=== PATIENT | female | born 1990 | race African-American/Black ===

== ENCOUNTER 2018-05-30 18:48 | Emergency (ER) | payer SELFPAY, OTHER ==
[2018-05-30] MEDS: ONDANSETRON 4MG/2ML VIAL (J2405) IV (20:15)
[2018-05-30] MEDS: KETOROLAC 30 MG/ML VIAL (J1885) IV (20:18)
[2018-05-30 20:26] LABS: BASO % 0.5 % (0.0-1.0); EOS # 0.1 10^3/uL (0.0-0.50); EOS % 1.8 % (0.0-3.0); HEMATOCRIT 38.1 % (36.0-47.0); HEMOGLOBIN 12.4 g/dl (12.0-15.5); IMMATURE GRANULOCYTE % 0.2 % (0-3.0); LYMPH # 3.7 10^3/uL (1.5-6.5); LYMPH % 56.8 % (24.0-44.0); MEAN CORPUSCULAR HEMOGLOBIN 28.6 pg (27.0-33.0); MEAN CORPUSCULAR HGB CONC 32.5 g/dl (32.0-36.5); MEAN CORPUSCULAR VOLUME 87.8 fl (80.0-96.0); MONO # 0.3 10^3/uL (0.0-0.8); MONO % 5.2 % (0.0-5.0); NEUTROPHILS # 2.4 10^3/uL (1.8-7.7); NEUTROPHILS % 35.5 % (36.0-66.0); PLATELET COUNT, AUTOMATED 255 10^3/uL (150-450); RED BLOOD COUNT 4.34 10^6/uL (4.00-5.40); RED CELL DISTRIBUTION WIDTH 14.4 % (11.5-14.5); WHITE BLOOD COUNT 6.6 10^3/uL (4.0-10.0)
[2018-05-30 20:28] LABS: KETONE, URINE AUTO RFX NEGATIVE (NEGATIVE); LEUKOCYTE ESTERASE UR AUTO RFX NEGATIVE (NEGATIVE); NITRITE, URINE AUTO RFX NEGATIVE (NEGATIVE); RBC, URINE AUTO RFX 1 /HPF (0-3); SPECIFIC GRAVITY UR AUTO RFX 1.005 (1.002-1.035); SQUAM EPITHELIAL CELL UR AURFX 2 /HPF (0-6); WBC, URINE AUTO RFX 0 /HPF (0-3)
[2018-05-30 20:55] LABS: ALBUMIN 3.8 GM/DL (3.2-5.2); ALBUMIN/GLOBULIN RATIO 0.76 (1.00-1.93); ALKALINE PHOSPHATASE 59 U/L (45-117); ALT/SGPT 21 U/L (12-78); ANION GAP 6 MEQ/L (8-16); AST/SGOT 21 U/L (7-37); BILIRUBIN,DIRECT < 0.1 MG/DL (0.0-0.2); BILIRUBIN,TOTAL 0.3 MG/DL (0.2-1.0); BLOOD UREA NITROGEN 5 MG/DL (7-18); C REACTIVE PROTEIN QUANTITATIV 0.81 MG/DL (0.00-0.30); CALCIUM LEVEL 9.4 MG/DL (8.5-10.1); CARBON DIOXIDE LEVEL 28 MEQ/L (21-32); CHLORIDE LEVEL 105 MEQ/L (98-107); CREATININE FOR GFR 0.68 MG/DL (0.55-1.30); GLOMERULAR FILTRATION RATE > 60.0 (>60); GLUCOSE, FASTING 84 MG/DL (70-100); POTASSIUM SERUM 4.6 MEQ/L (3.5-5.1); SODIUM LEVEL 139 MEQ/L (136-145); TOTAL PROTEIN 8.8 GM/DL (6.4-8.2)
== END 2018-05-30 21:36 | disposition home or self-care (01) ==
LOC: M ED 18:48
DX: R51 Headache (principal); D25.9 Leiomyoma of uterus, unspecified
CPT/HCPCS: J2405

== ENCOUNTER 2018-06-19 12:18 | Emergency (ER) | payer OTHER, SELFPAY ==
[2018-06-19 13:02] LABS: BASO % 0.5 % (0.0-1.0); EOS # 0.1 10^3/uL (0.0-0.50); EOS % 1.5 % (0.0-3.0); HEMOGLOBIN 12.8 g/dl (12.0-15.5); IMMATURE GRANULOCYTE % 0.2 % (0-3.0); LYMPH # 2.7 10^3/uL (1.5-6.5); LYMPH % 44.3 % (24.0-44.0); MEAN CORPUSCULAR HEMOGLOBIN 28.7 pg (27.0-33.0); MEAN CORPUSCULAR HGB CONC 32.8 g/dl (32.0-36.5); MEAN CORPUSCULAR VOLUME 87.4 fl (80.0-96.0); MONO # 0.3 10^3/uL (0.0-0.8); MONO % 4.3 % (0.0-5.0); NEUTROPHILS # 2.9 10^3/uL (1.8-7.7); NEUTROPHILS % 49.2 % (36.0-66.0); PLATELET COUNT, AUTOMATED 222 10^3/uL (150-450); RED BLOOD COUNT 4.46 10^6/uL (4.00-5.40)
[2018-06-19] MEDS: ONDANSETRON 4MG/2ML VIAL (J2405) IV (13:04)
[2018-06-19] MEDS: MORPHINE 4 MG/ML 1ML VIAL/SYRINGE (J2270) IV ×2 (13:04→14:22)
[2018-06-19 13:05] LABS: KETONE, URINE AUTO RFX NEGATIVE (NEGATIVE); LEUKOCYTE ESTERASE UR AUTO RFX NEGATIVE (NEGATIVE); NITRITE, URINE AUTO RFX NEGATIVE (NEGATIVE); RBC, URINE AUTO RFX 0 /HPF (0-3); SPECIFIC GRAVITY UR AUTO RFX 1.001 (1.002-1.035); SQUAM EPITHELIAL CELL UR AURFX 1 /HPF (0-6); WBC, URINE AUTO RFX 0 /HPF (0-3)
[2018-06-19] MEDS: NS 1,000 ML IV (13:05)
[2018-06-19 13:34] LABS: ALBUMIN 3.9 GM/DL (3.2-5.2); ALBUMIN/GLOBULIN RATIO 0.76 (1.00-1.93); ALKALINE PHOSPHATASE 62 U/L (45-117); ALT/SGPT 20 U/L (12-78); AMYLASE 92 U/L (25-115); ANION GAP 5 MEQ/L (8-16); AST/SGOT 16 U/L (7-37); BILIRUBIN,DIRECT < 0.1 MG/DL (0.0-0.2); BILIRUBIN,TOTAL 0.2 MG/DL (0.2-1.0); BLOOD UREA NITROGEN 3 MG/DL (7-18); CALCIUM LEVEL 9.5 MG/DL (8.5-10.1); CARBON DIOXIDE LEVEL 30 MEQ/L (21-32); CHLORIDE LEVEL 103 MEQ/L (98-107); CREATININE FOR GFR 0.72 MG/DL (0.55-1.30); GLOMERULAR FILTRATION RATE > 60.0 (>60); GLUCOSE, FASTING 97 MG/DL (70-100); LIPASE 86 U/L (73-393); POTASSIUM SERUM 4.2 MEQ/L (3.5-5.1); SODIUM LEVEL 138 MEQ/L (136-145)
[2018-06-19] MEDS ORDERED: ISOVUE-370 76% 100ML VIAL (Q9967) As Ordered (13:42)
== END 2018-06-19 14:52 | disposition home or self-care (01) ==
LOC: M ED 12:18
DX: N83.201 Unspecified ovarian cyst, right side (principal); D25.9 Leiomyoma of uterus, unspecified
CPT/HCPCS: J2270

== ENCOUNTER → 2018-07-23 | Outpatient (CLI) | payer OTHER | LOC: M RAD 10:06 | DX: N64.4 Mastodynia (principal) | CPT/HCPCS: 77066 ==

== ENCOUNTER 2018-10-06 06:06 | Day surgery (SDC) | payer OTHER ==
[~2018-10-06] VITALS: Ht 165.1 cm; Wt 65.4 kg
[~2018-10-06 06:06] MED LIST: IBUP80TA PO; LR 1,000 ML IV ONE; NORCOTAB PO; ZOFR4TAB14 PO; cefoTEtan DISODIUM 2 GM in D5W MINI-BAG PLUS 50 ML IV ONE; cefoTEtan DISODIUM 2 GM in D5W MINI-BAG PLUS 50 ML IV SCH
[2018-10-06 06:48] LABS: HEMATOCRIT 37.2 % (36.0-47.0); HEMOGLOBIN 12.2 g/dl (12.0-15.5); MEAN CORPUSCULAR HEMOGLOBIN 29.4 pg (27.0-33.0); MEAN CORPUSCULAR HGB CONC 32.8 g/dl (32.0-36.5); MEAN CORPUSCULAR VOLUME 89.6 fl (80.0-96.0); PLATELET COUNT, AUTOMATED 233 10^3/uL (150-450); RED BLOOD COUNT 4.15 10^6/uL (4.00-5.40); WHITE BLOOD COUNT 5.9 10^3/uL (4.0-10.0)
[2018-10-06] MEDS ORDERED: METHYLENE BLUE 0.5% (5MG/ML) 10 ML AMP (PROVAYBLUE)(Q9968 PER 1MG) As Ordered ONE (07:12)
[2018-10-06] MEDS ORDERED: BUPIVACAINE HCL 0.5% 10 ML VIAL As Ordered ONE (07:12)
[2018-10-06] MEDS ORDERED: ACETAMINOPHEN 650 MG SUPP As Ordered ONE (07:13)
[2018-10-06] MEDS ORDERED: fentaNYL 250 MCG/5 ML INJECTION (J3010) As Ordered ONE (07:13)
[2018-10-06 07:14] LABS: BLOOD UREA NITROGEN 8 MG/DL (7-18); CALCIUM LEVEL 8.5 MG/DL (8.5-10.1); CARBON DIOXIDE LEVEL 27 MEQ/L (21-32); CHLORIDE LEVEL 104 MEQ/L (98-107); CREATININE FOR GFR 0.87 MG/DL (0.55-1.30); GLOMERULAR FILTRATION RATE > 60.0 (>60); GLUCOSE, FASTING 86 MG/DL (70-100); HCG, SERUM QUANTITATIVE < 1.0 MIU/ML; SODIUM LEVEL 140 MEQ/L (136-145)
[2018-10-06] MEDS ORDERED: KETOROLAC 60 MG/2 ML VIAL (J1885) As Ordered ONE (07:14)
[2018-10-06] MEDS ORDERED: dexameTHASONE 4 MG/ML 1ML VIAL (J1100) As Ordered ONE (07:14)
[2018-10-06] MEDS ORDERED: LIDOCAINE 2% INJ 100 MG/5 ML SDV (FOR ANES.) As Ordered ONE (07:14)
[2018-10-06] MEDS ORDERED: PROPOFOL 200 MG/20 ML VIAL As Ordered ONE (07:14)
[2018-10-06] MEDS ORDERED: ROCURONIUM BROMIDE 50 MG/5 ML VIAL As Ordered ONE (07:14)
[2018-10-06] MEDS ORDERED: MIDAZOLAM INJ 2 MG/2 ML VIAL (J2250) As Ordered ONE (07:14)
[2018-10-06] MEDS ORDERED: ONDANSETRON 4MG/2ML VIAL (J2405) As Ordered ONE (07:14)
[2018-10-06] MEDS ORDERED: cefoTEtan INJ 2GM VIAL (S0074 PER 500MG) As Ordered ONE (07:27)
[2018-10-06] MEDS ORDERED: NEOSTIGMINE 10 MG/10 ML VIAL (J2710) As Ordered ONE (08:10)
[2018-10-06] MEDS ORDERED: GLYCOPYRROLATE INJ 0.2 MG/ML 2 ML VIAL As Ordered ONE (08:10)
[2018-10-06] MEDS ORDERED: NALOXONE INJ 0.4 MG/1 ML VIAL (J2310) As Ordered ONE (08:45)
[2018-10-06] MEDS ORDERED: PERCOCET 5MG/325MG TAB PO PRN (09:00)
[2018-10-06] MEDS ORDERED: LR 1,000 ML IV SCH (09:00)
[2018-10-06] MEDS ORDERED: HYDROMORPHONE HCL 0.5 MG/ 0.5 ML SYRINGE (J1170 PER 1) IV PRN (09:00)
[2018-10-06] MEDS ORDERED: fentaNYL 100 MCG/2 ML INJECTION (J3010) IV PRN (09:00)
[2018-10-06] MEDS ORDERED: ONDANSETRON 4MG/2ML VIAL (J2405) IV PRN (09:00)
[2018-10-06 14:00] VITALS: BP 110/75
== END 2018-10-06 14:32 | disposition home or self-care (01) ==
LOC: M SDC 06:06
PROVIDERS: ATTEND Obstetrics & Gynecology
DX: R10.2 Pelvic and perineal pain (principal); Z79.899 Other long term (current) drug therapy
CPT/HCPCS: 36415; 49320; 80048; 84702; 85027; J1100; J1885; J2250; J2310; J2405; J2710; J3010

== ENCOUNTER 2019-02-19 17:38 | Emergency (ER) | payer OTHER ==
[~2019-02-19] VITALS: Ht 165.1 cm; Wt 65.8 kg
[~2019-02-19 17:38] MED LIST changes: +HYDR-3715 PO; -LR 1,000 ML IV ONE; -NORCOTAB PO; -cefoTEtan DISODIUM 2 GM in D5W MINI-BAG PLUS 50 ML IV ONE; -cefoTEtan DISODIUM 2 GM in D5W MINI-BAG PLUS 50 ML IV SCH
[2019-02-19] MEDS ORDERED: KETOROLAC 30 MG/ML VIAL (J1885) IV ONE (18:00)
[2019-02-19] MEDS ORDERED: NS 1,000 ML IV ONE (18:00)
[2019-02-19] MEDS ORDERED: ONDANSETRON 4MG/2ML VIAL (J2405) IV ONE (18:00)
[2019-02-19 18:21] LABS: BASO % 0.5 % (0.0-1.0); EOS # 0.1 10^3/uL (0.0-0.50); HEMOGLOBIN 12.2 g/dl (12.0-15.5); LYMPH # 3.1 10^3/uL (1.5-6.5); LYMPH % 49.2 % (24.0-44.0); MEAN CORPUSCULAR HEMOGLOBIN 29.4 pg (27.0-33.0); MEAN CORPUSCULAR VOLUME 89.2 fl (80.0-96.0); MONO # 0.3 10^3/uL (0.0-0.8); MONO % 4.6 % (0.0-5.0); NEUTROPHILS # 2.8 10^3/uL (1.8-7.7); NEUTROPHILS % 43.5 % (36.0-66.0); PLATELET COUNT, AUTOMATED 220 10^3/uL (150-450); RED BLOOD COUNT 4.15 10^6/uL (4.00-5.40); WHITE BLOOD COUNT 6.4 10^3/uL (4.0-10.0)
[2019-02-19 18:40] LABS: BLOOD UREA NITROGEN 7 MG/DL (7-18); CALCIUM LEVEL 9.3 MG/DL (8.5-10.1); CARBON DIOXIDE LEVEL 26 MEQ/L (21-32); CHLORIDE LEVEL 106 MEQ/L (98-107); CREATININE FOR GFR 0.78 MG/DL (0.55-1.30); GLOMERULAR FILTRATION RATE > 60.0 (>60); GLUCOSE, FASTING 84 MG/DL (70-100); POTASSIUM SERUM 4.1 MEQ/L (3.5-5.1); SODIUM LEVEL 138 MEQ/L (136-145)
--- NOTE | 2019-02-19 19:13 | REPVR ---
EXAM: US Pelvis, Transvaginal EXAM DATE/TIME: 02/19/2019 6:22 PM CLINICAL HISTORY: 28 years old, female; Pelvic pain; Additional info: Right pelvic pain, HX of fibroids, endometriosis TECHNIQUE: Imaging protocol: Real-time transvaginal pelvic ultrasound with image documentation. Transvaginal imaging was used for better evaluation of the endometrium and adnexa. COMPARISON: US PELVIC NON-OB COMPLETE 05/30/2018 8:13 PM FINDINGS: Uterus/cervix: Uterus measures 7.3 x 3.8 x 4.6 cm. Low uterine segment fibroid on the right measures 1.9 x 1.3 x 2.3 cm. Pedunculated right lateral fibroid measures 1.9 x 1.7 x 1.9 cm. Endometrial echocomplex measures 9.6 mm. Right adnexa: Right ovary measures 3.4 1.9 x 3.1 cm. Resistive index 0.57. Involuting follicle demonstrated in the right ovary measuring 1.6 x 1.1 x 1.6 cm. Left adnexa: Left ovary measures 2.9 x 1.9 x 2.1 cm. Resistive index 0.66. Bladder: Empty bladder. Bladder cannot be evaluated with this probe. Free fluid: None. IMPRESSION: Uterine fibroids. Thickening of the endometrial echocomplex in this patient who reports an LMP of 7:30 2018. Correlation with sonohysterogram suggested for further evaluation. Otherwise unremarkable exam. Electronically signed by: Austyn Petersen On 02/19/2019 19:12:31 PM
[2019-02-19] MEDS ORDERED: IBUP-1022 PO (19:30)
[2019-02-19] MEDS ORDERED: SIME180C PO (19:30)
[2019-02-19] MEDS ORDERED: ONDA4TAB6 PO (19:30)
[2019-02-19 19:34] VITALS: BP 104/69
--- NOTE | 2019-02-22 14:36 | ED PDOC ---
Post-Departure Follow-Up nga daiz and agustin bajwa faxed formal report of pelvic us for fu Carina Abdalla MD February 22, 2019 14:36
== END 2019-02-19 19:39 | disposition home or self-care (01) ==
LOC: M ED 17:38
DX: R10.2 Pelvic and perineal pain (principal); N80.9 Endometriosis, unspecified; D25.9 Leiomyoma of uterus, unspecified
CPT/HCPCS: 76830; 76856; 80048; 81001; 84702; 85025; 93976; 96361; 96374; 96375; 99284; J1885; J2405

== ENCOUNTER 2019-03-29 16:01 | Emergency (ER) | payer OTHER ==
[~2019-03-29] VITALS: Ht 165.1 cm; Wt 65.0 kg
[~2019-03-29 16:01] MED LIST changes: +IBUP-1022 PO; +ONDA4TAB6 PO; +SIME180C PO
[2019-03-29] MEDS ORDERED: PREN27TA3 (16:08)
[2019-03-29] MEDS ORDERED: ONDANSETRON 4MG/2ML VIAL (J2405) IV ONE (17:30)
[2019-03-29] MEDS ORDERED: NS 1,000 ML IV ONE (17:30)
[2019-03-29] MEDS ORDERED: MORPHINE 2 MG/ML 1ML SYRINGE (J2270) IV ONE (17:30)
[2019-03-29 17:49] LABS: BASO % 0.3 % (0.0-1.0); EOS # 0.1 10^3/uL (0.0-0.50); HEMATOCRIT 36.7 % (36.0-47.0); LYMPH # 2.5 10^3/uL (1.5-6.5); LYMPH % 40.1 % (24.0-44.0); MEAN CORPUSCULAR HEMOGLOBIN 29.3 pg (27.0-33.0); MEAN CORPUSCULAR HGB CONC 32.7 g/dl (32.0-36.5); MEAN CORPUSCULAR VOLUME 89.7 fl (80.0-96.0); MONO # 0.3 10^3/uL (0.0-0.8); MONO % 4.9 % (0.0-5.0); NEUTROPHILS # 3.3 10^3/uL (1.8-7.7); NEUTROPHILS % 53.4 % (36.0-66.0); PLATELET COUNT, AUTOMATED 240 10^3/uL (150-450); RED BLOOD COUNT 4.09 10^6/uL (4.00-5.40); WHITE BLOOD COUNT 6.2 10^3/uL (4.0-10.0)
[2019-03-29 18:37] LABS: ALBUMIN 3.7 GM/DL (3.2-5.2); ALT/SGPT 19 U/L (12-78); BILIRUBIN,DIRECT < 0.1 MG/DL (0.0-0.2); BILIRUBIN,TOTAL 0.2 MG/DL (0.2-1.0); BLOOD UREA NITROGEN 4 MG/DL (7-18); CALCIUM LEVEL 9.3 MG/DL (8.5-10.1); CARBON DIOXIDE LEVEL 24 MEQ/L (21-32); CHLORIDE LEVEL 104 MEQ/L (98-107); CREATININE FOR GFR 0.53 MG/DL (0.55-1.30); GLOMERULAR FILTRATION RATE > 60.0 (>60); GLUCOSE, FASTING 91 MG/DL (70-100); HCG, SERUM QUANTITATIVE 153108 MIU/ML; LIPASE 81 U/L (73-393); POTASSIUM SERUM 4.3 MEQ/L (3.5-5.1); SODIUM LEVEL 136 MEQ/L (136-145); TOTAL PROTEIN 8.2 GM/DL (6.4-8.2)
[2019-03-29] MEDS ORDERED: ONDANSETRON 4 MG ORAL DISINTEGRATING TAB (Q0162 PER 1MG) PO ONE (20:00)
[2019-03-29] MEDS ORDERED: PERCOCET 5MG/325MG TAB PO ONE (20:00)
--- NOTE | 2019-03-29 20:54 | REPVR ---
EXAM: US First Trimester, Transabdominal EXAM DATE/TIME: 03/29/2019 8:28 PM CLINICAL HISTORY: 29 years old, female; complicated by abdominal or pelvic pain; Right lower quadrant; First trimester; Gestational age or lmp: 8w 4d; ; Additional info: Rlq pain TECHNIQUE: Imaging protocol: Real-time transabdominal obstetrical ultrasound of the maternal pelvis and a first trimester , less than 14 weeks 0 days, with image documentation. COMPARISON: US SPRING FORMER 02/19/2019 6:19 PM FINDINGS: GESTATION: Gestation: Single gestational sac in the uterus. Single fetus demonstrated within the gestational sac. Yolk sac demonstrated. Heart rate: heart rate is 173 beats per minute. Placenta: Unremarkable. No subchorionic bleed. Residual elevation of the chorion likely related to residual implantation bleeding. Amniotic fluid: Amniotic and chorionic fluid are normal for gestational age. BIOMETRY: Estimated gestational age: Gestational age based on crown-rump length is 8 weeks 4 days. NORMA is 11/04/2019 Everett-Rump length: Everett-rump length of the fetus is 20 mm. MATERNAL: Uterus: 2 uterine fibroids are demonstrated measuring 3.2 x 3.1 x 3 cm and the right fundus and 2.6 x 1.6 x 2.5 cm in the lower uterine segment on the right. Cervix: Unremarkable. Right adnexa: Normal right ovary. Left adnexa: Left ovary not visualized. Intraperitoneal: No intraperitoneal free fluid. IMPRESSION: Unremarkable early gestation at 8 weeks 4 days. Followup at 19-20 weeks for a detailed anatomical survey could be obtained if clinically desired. Electronically signed by: Austyn Petersen On 03/29/2019 20:53:36 PM
[2019-03-29 21:10] VITALS: BP 107/55
[2019-03-29] MEDS ORDERED: ZOFR4TAB16 PO (21:17)
== END 2019-03-29 21:30 | disposition home or self-care (01) ==
LOC: M ED 16:01
DX: D25.9 Leiomyoma of uterus, unspecified (principal); Z3A.08 8 weeks gestation of pregnancy; N80.9 Endometriosis, unspecified
CPT/HCPCS: 36415; 76801; 80048; 80076; 81001; 83690; 84702; 85025; 86901; 99283; Q0162

== ENCOUNTER → 2019-08-25 | Outpatient (CLI) | payer OTHER ==
[~2019-08-25] MED LIST changes: +PREN27TA3; +ZOFR4TAB16 PO
--- NOTE | 2019-08-25 17:23 | REP ---
BILATERAL MAMMOGRAM WITH RIGHT BREAST ULTRASOUND: CLINICAL HISTORY: Pain right breast 10-12 o'clock for the past 2 years. COMPARISON: 07/23/2018. No family history of breast cancer. Tyrer-Cuzick lifetime risk of breast cancer 14.7%. MLO and CC views of both breasts were performed. Breast parenchyma is heterogeneously dense limiting the sensitivity of the mammogram. There is no mammographic evidence of mass or architectural distortion. No clustered microcalcifications are seen. Real-time sonographic evaluation of the right breast was performed between 10 and 12 o'clock. There is dense fibroglandular tissue present. There is an oval hypoechoic area in this region which measures 1.9 x 1.0 x 1.2 cm. This could represent a band of focal fibroglandular tissues versus an oval hypoechoic nodule. IMPRESSION: ACR 4 suspicious. No mammographic abnormality is seen however, at the site of the reported pain in the right breast 10-12 o'clock there is sonographic evidence of an oval hypoechoic structure 1.9 x 1.0 x 1.2 cm which may represent a solid oval nodule versus a band of dense fibroglandular tissue. Recommend either ultrasound guided biopsy of further evaluation with MRI of the breasts with and without contrast. BIRADS 4: BI-RADS/ACR category 4 mammogram. Suspicious Abnormality - biopsy should be considered. This mammogram was interpreted with the aid of an FDA-approved computer-aided detection system. The patient states she had a clinical breast exam in 08/2019. The patient letter being requested is M4. Electronically Signed by Masoud Roberto MD 08/26/2019 04:59 P
== END ==
LOC: M RAD 12:07
PROVIDERS: ATTEND Nurse Practitioner Women's Health
DX: N64.4 Mastodynia (principal); R92.8 Other abnormal and inconclusive findings on diagnostic imaging of breast

== ENCOUNTER 2020-05-26 21:31 | Emergency (ER) | payer OTHER ==
[~2020-05-26] VITALS: Ht 165.1 cm; Wt 65.5 kg
[2020-05-26] MEDS ORDERED: NS 1,000 ML IV ONE (22:00)
[2020-05-26] MEDS ORDERED: ONDANSETRON 4MG/2ML VIAL IV ONE (22:00)
[2020-05-26 22:14] LABS: BASO % 0.7 % (0.0-1.0); EOS # 0.1 10^3/uL (0.0-0.5); EOS % 2.1 % (0.0-3.0); HEMATOCRIT 38.2 % (36.0-47.0); HEMOGLOBIN 12.7 g/dl (12.0-15.5); LYMPH # 2.7 10^3/uL (1.5-5.0); LYMPH % 48.6 % (24.0-44.0); MEAN CORPUSCULAR HEMOGLOBIN 29.7 pg (27.0-33.0); MEAN CORPUSCULAR HGB CONC 33.2 g/dl (32.0-36.5); MEAN CORPUSCULAR VOLUME 89.5 fl (80.0-96.0); MONO # 0.3 10^3/uL (0.0-0.8); MONO % 4.8 % (0.0-5.0); NEUTROPHILS # 2.4 10^3/uL (1.5-8.5); NEUTROPHILS % 43.6 % (36.0-66.0); PLATELET COUNT, AUTOMATED 205 10^3/uL (150-450); RED BLOOD COUNT 4.27 10^6/uL (4.00-5.40); WHITE BLOOD COUNT 5.6 10^3/uL (4.0-10.0)
[2020-05-26] MEDS ORDERED: ISOVUE-370 76% 100ML VIAL As Ordered ONE (22:22)
--- NOTE | 2020-05-26 22:41 | REPVR ---
PROCEDURE INFORMATION: Exam: CT Abdomen And Pelvis With Contrast Exam date and time: 05/26/2020 10:30 PM Age: 30 years old Clinical indication: Abdominal pain; Localized; Right; Additional info: R sided abd pain x3 weeks R/O infectious process TECHNIQUE: Imaging protocol: Computed tomography of the abdomen and pelvis with intravenous contrast. Radiation optimization: All CT scans at this facility use at least one of these dose optimization techniques: automated exposure control; mA and/or kV adjustment per patient size (includes targeted exams where dose is matched to clinical indication); or iterative reconstruction. Contrast material: ISOVUE 370; Contrast volume: 100 ml; Contrast route: INTRAVENOUS (IV); COMPARISON: No relevant prior studies available. FINDINGS: Liver: Normal. No mass. Gallbladder and bile ducts: The gallbladder is incompletely distended. This is most likely related to incomplete fasting. Clinical correlation to exclude gallbladder pathology suggested. Pancreas: Normal. No ductal dilation. Spleen: Normal. No splenomegaly. Adrenals: Normal. No mass. Kidneys and ureters: Normal. No hydronephrosis. Stomach and bowel: Unremarkable. No obstruction. No mucosal thickening. Appendix: The appendix is within normal limits. There is no appendiceal enlargement, periappendiceal inflammatory changes or abscess. Intraperitoneal space: Unremarkable. No free air. No significant fluid collection. Vasculature: Unremarkable. No abdominal aortic aneurysm. Lymph nodes: Unremarkable. No enlarged lymph nodes. Bladder: Unremarkable as visualized. Reproductive: Right posterior subserosal uterine myoma measures 2.1 cm. Bones/joints: Unremarkable. No acute fracture. Soft tissues: There is a small umbilical hernia. There is no evidence of incarceration. IMPRESSION: 1. The gallbladder is incompletely distended. This is most likely related to incomplete fasting. Clinical correlation to exclude gallbladder pathology suggested. 2. The appendix is within normal limits. There is no appendiceal enlargement, periappendiceal inflammatory changes or abscess. 3. Right posterior subserosal uterine myoma measures 2.1 cm. Electronically signed by: Austyn Petersen On 05/26/2020 22:42:04 PM
[2020-05-26 23:24] LABS: ALBUMIN 3.8 GM/DL (3.2-5.2); ALT/SGPT 24 U/L (12-78); BILIRUBIN,DIRECT < 0.1 MG/DL (0.0-0.2); BILIRUBIN,TOTAL 0.2 MG/DL (0.2-1.0); HCG, SERUM QUANTITATIVE < 1.0 MIU/ML; LIPASE 76 U/L (73-393); TOTAL PROTEIN 8.5 GM/DL (6.4-8.2)
--- NOTE | 2020-05-26 23:59 | REPVR ---
PROCEDURE INFORMATION: Exam: US Abdomen, Limited; Right Upper Quadrant Exam date and time: 05/26/2020 11:39 PM Age: 30 years old Clinical indication: Abdominal pain; Epigastric; Additional info: Abd pain R/O cholecystitis TECHNIQUE: Imaging protocol: US abdomen. Real time ultrasound with image documentation. Limited exam focused on the right upper quadrant. COMPARISON: CT ABD/PEL W/IV CONTRAST ONLY 05/26/2020 10:22 PM FINDINGS: Liver: Unremarkable. Gallbladder: No gallstones. No gallbladder wall thickening or pericholecystic fluid. Negative sonographic Lujan's sign, as per the performing rail car welder. Common bile duct: No stones. No ductal dilatation. Pancreas: Unremarkable as visualized. Right kidney: No mass. No definite stones. No hydronephrosis. IMPRESSION: No acute sonographic findings. Electronically signed by: Evangelista Mcgowan On 05/26/2020 23:59:25 PM
[2020-05-27 00:29] VITALS: BP 136/86
== END 2020-05-27 00:30 | disposition home or self-care (01) ==
LOC: MERGE 21:31 → M ED 21:31
DX: N80.9 Endometriosis, unspecified (principal); R10.9 Unspecified abdominal pain; Z87.42 Personal history of other diseases of the female genital tract
CPT/HCPCS: 74177; 76705; 80047; 80076; 81001; 83690; 84702; 85025; 96361; 96374; 99284; J2405; Q9967

== ENCOUNTER 2021-04-18 06:37 | Inpatient (IN) | payer OTHER ==
[~2021-04-18] VITALS: Ht 165.1 cm; Wt 77.5 kg
[~2021-04-18 06:37] MED LIST changes: +MIRA3350 PO; +OXYC10TA3 PO; +OXYC1TAB23 PO; +PRENTAB9 PO; -SIME180C PO; +SIME180C25 PO
[2021-04-18] MEDS ORDERED: BICITRA 30ML SOLN UDC PO ONE (07:10)
[2021-04-18] MEDS ORDERED: ceFAZolin SOD 2 GM in IV 1 EA IV ONE (07:15)
[2021-04-18] MEDS ORDERED: AZITHROMYCIN INJ 500 MG, VIAL MATE ADAPTER 1 EACH in NS 250 ML IV ONE (07:15)
[2021-04-18] MEDS: LR 1,000 ML IV SCH ×3 (08:09→23:10)
[2021-04-18 08:27] LABS: HEMATOCRIT 35.5 % (36.0-47.0); HEMOGLOBIN 11.9 g/dl (12.0-15.5); MEAN CORPUSCULAR HEMOGLOBIN 31.9 pg (27.0-33.0); MEAN CORPUSCULAR HGB CONC 33.5 g/dl (32.0-36.5); MEAN CORPUSCULAR VOLUME 95.2 fl (80.0-96.0); PLATELET COUNT, AUTOMATED 168 10^3/uL (150-450); RED BLOOD COUNT 3.73 10^6/uL (4.00-5.40); WHITE BLOOD COUNT 7.7 10^3/uL (4.0-10.0)
[2021-04-18] MEDS ORDERED: BUPIVACAINE HCL 0.25% 10ML VIAL SC ONE (08:50)
[2021-04-18] MEDS ORDERED: ACETAMINOPHEN 650 MG SUPP PR ONE (08:50)
[2021-04-18] MEDS: PRENATAL VITAMINS CHEWABLE TABLET PO SCH (09:00)
[2021-04-18] MEDS ORDERED: ONDANSETRON 4MG/2ML VIAL IV PRN ×2 (10:09→12:00)
[2021-04-18] MEDS ORDERED: METOCLOPRAMIDE INJ 10MG/2ML VIAL (J2765 PER 1) IV PRN ×2 (10:09→12:00)
[2021-04-18] MEDS ORDERED: diphenhydrAMINE 50MG/ML VIAL (J1200) IV PRN (10:09)
[2021-04-18] MEDS ORDERED: NALBUPHINE HCL 10 MG/ML AMP (J2300) IV PRN (10:09)
[2021-04-18] MEDS ORDERED: NALOXONE INJ 0.4MG/1ML VIAL (J2310 PER 1MG) IV PRN ×2 (10:09)
[2021-04-18] MEDS ORDERED: MORPHINE PRES-FREE INJ 10 MG/10 ML VIAL (J2274) As Ordered ONE (10:19)
[2021-04-18] MEDS ORDERED: ONDANSETRON 4MG/2ML VIAL As Ordered ONE ×2 (10:19→12:50)
[2021-04-18] MEDS ORDERED: OXYTOCIN INJ 10 UNITS/ML VIAL (J2590) As Ordered ONE (10:19)
[2021-04-18] MEDS ORDERED: dexameTHASONE 4 MG/ML 1ML VIAL (J1100 PER 1MG) As Ordered ONE (10:19)
[2021-04-18] MEDS ORDERED: PHENYLephrine 500MCG 5ML (100MCG/ML) SYRINGE As Ordered ONE (10:19)
[2021-04-18] MEDS ORDERED: KETOROLAC 60MG 2ML VIAL As Ordered ONE (10:19)
[2021-04-18] MEDS ORDERED: MEASLES,MUMPS,RUBELLA VACCINE INJ (MMR-II) (90707) SC SCH (10:55)
[2021-04-18] MEDS ORDERED: OXYTOCIN INJ 10 UNITS/ML VIAL (J2590) IV ONE (10:55)
[2021-04-18] MEDS ORDERED: MOM 30ML SUSPENSION UDC PO PRN (10:55)
[2021-04-18] MEDS ORDERED: LR 1,000 ML IV SCH ×2 (10:55→12:00)
[2021-04-18] MEDS ORDERED: ACETAMINOPHEN 650 MG SUPP PR PRN (10:55)
[2021-04-18] MEDS ORDERED: DOCUSATE SODIUM 100MG CAPSULE PO PRN (10:55)
[2021-04-18] MEDS ORDERED: RHOGAM 300 MCG (1500 IU) INJ (J2790) IM SCH (10:55)
[2021-04-18] MEDS ORDERED: ANUSOL HC CREAM 30GM TOP PRN (10:55)
[2021-04-18] MEDS ORDERED: METHYLERGONOVINE MALEATE 0.2 MG TAB PO PRN (10:55)
[2021-04-18] MEDS ORDERED: ACETAMINOPHEN TAB 650MG DOSE (2X325MG) PO PRN (10:55)
[2021-04-18] MEDS ORDERED: OXYTOCIN DRIP 30 UNITS in IV 1 EA IV ONE (10:55)
[2021-04-18 10:58] LABS: CORD GAS ABE A -4.6; CORD GAS ABE V -3.4; CORD GAS HCO3 A 21.6 MEQ/L; CORD GAS HCO3 V 23.1 MEQ/L; CORD GAS O2 SAT A 66.5 %; CORD GAS O2 SAT V 72.2 %; CORD GAS PCO2 A 43.8 mmHg; CORD GAS PCO2 V 46.9 mmHg; CORD GAS PH A 7.311 UNITS; CORD GAS PH V 7.31 UNITS; CORD GAS PO2 A 33.4 mmHg; CORD GAS PO2 V 36.5 mmHg; CORD GAS TCO2 V 24.5 MEQ/L
[2021-04-18] MEDS ORDERED: PERCOCET 5MG/325MG TAB PO PRN (12:00)
[2021-04-18] MEDS ORDERED: fentaNYL 100 MCG/2 ML INJECTION (J3010) IV PRN (12:00)
[2021-04-18] MEDS ORDERED: OXYTOCIN 30 UNITS IN 0.9% NaCl 500ML IV BAG (J2590) As Ordered ONE (12:55)
[2021-04-18 13:45] VITALS: BP 104/65
[2021-04-18 14:15] VITALS: BP 111/70
[2021-04-18 14:45] VITALS: BP 116/65
[2021-04-18 16:27] VITALS: BP 117/69
[2021-04-18] MEDS: KETOROLAC 30 MG/ML 1ML VIAL IV SCH ×2 (17:15→22:33)
[2021-04-18 17:58] VITALS: BP 121/67
[2021-04-18 22:36] VITALS: BP 121/68
[2021-04-19 02:48] VITALS: BP 106/55
[2021-04-19] MEDS: KETOROLAC 30 MG/ML 1ML VIAL IV SCH (04:07)
[2021-04-19] MEDS: LR 1,000 ML IV SCH (05:15)
[2021-04-19 06:21] VITALS: BP 130/65
--- NOTE | 2021-04-19 07:15 | IPNPDOC ---
Progress Note Date of Service: Apr 19, 2021 Day#: 1 Progress Note SUBJECT: 31yo status post uncomplicated primary low transverse section due to placenta previa on Apr. Delivered a MALE infant, APGARS 9/9. Pt doing well postoperatively. She has been ambulating, voiding spontaneously without issue and tolerating regular diet. Attempting to breast feed however states milk has not come in yet. Reports lochia is minimal (spotting). Desires depoProvera for contraception. OBJECTIVE: VITAL SIGNS: Within normal limits, afebrile. Alert and oriented times three. Normal work of breathing Heart rate: Regular rate Abdomen: Fundus firm at U-2. Soft, NTTP. Incision with optifoam dressing in place, R side of dressing noted to have some oozing that has remained stable overnight. Otherwise intact, dry ASSESSMENT: 31yo G3 now P1021 s/p PLTCS at term for placenta previa. also complicated by IUGR. PLAN: 1. Discharge to home likely tomorrow 2. Tylenol, Motrin and oxycodone for pain. 3. Encourage breast feeding and ambulation. 4. Desires depoProvera shot for contraception. 5. Plan for 1-2 week incision check and Routine PP visit in 6 weeks in clinic. VS, I&O, 24H, Fishbone Vital Signs/I&O Vital Signs Date Time Temp Pulse Resp B/P (MAP) Pulse Ox O2 Delivery O2 Flow Rate FiO2 04/19/21 06:21 98.0 61 18 130/65 (86) 98 04/18/21 16:27 Room Air I&O- Last 24 Hours up to 6 AM 04/19/21 06:00 Intake Total 5105 ml Output Total 1775 ml Balance 3330 ml Laboratory Data 24H LABS Laboratory Tests 2 04/18/21 08:08: Nucleated Red Blood Cells % (auto) 0.0, Syphilis Serology NONREACTIVE 04/18/21 10:43: Cord Arterial Blood pH 7.311, Cord Arterial Blood PCO2 43.8, Cord Arterial Blood PO2 33.4, Cord Arterial Blood HCO3 21.6, Cord Arterial Blood Total CO2 23.0, Co rd Arterial Blood Base Excess -4.6, Cord Arterial Base Excess (Standard 20.0, Cord Arterial Bld Oxygen Saturation 66.5, Cord Venous Blood pH 7.310, Cord Venous Blood PCO2 46.9, Cord Venous Blood PO2 36.5, Cord Venous Blood HCO3 23.1, Cord Venous Blood Total CO2 24.5, Cord Venous Base Excess (Actual) -3.4, Cord Venous Base Excess (Standard) 21.0, Cord Venous Blood Oxygen Saturation 72.2 CBC/BMP Laboratory Tests 04/18/21 08:08 PRISCILA WHITE M.D. Apr 19, 2021 07:15
[2021-04-19 07:49] LABS: HEMATOCRIT 30.9 % (36.0-47.0); HEMOGLOBIN 10.3 g/dl (12.0-15.5); MEAN CORPUSCULAR HEMOGLOBIN 31.9 pg (27.0-33.0); MEAN CORPUSCULAR HGB CONC 33.3 g/dl (32.0-36.5); MEAN CORPUSCULAR VOLUME 95.7 fl (80.0-96.0); PLATELET COUNT, AUTOMATED 157 10^3/uL (150-450); RED BLOOD COUNT 3.23 10^6/uL (4.00-5.40); WHITE BLOOD COUNT 11.3 10^3/uL (4.0-10.0)
[2021-04-19] MEDS: PRENATAL VITAMINS CHEWABLE TABLET PO SCH (08:05)
[2021-04-19 10:00] VITALS: BP 109/57
[2021-04-19] MEDS ORDERED: IBUPROFEN 600MG TAB PO PRN (13:00)
[2021-04-19] MEDS: SIMETHICONE 80MG CHEW TAB PO PRN ×2 (13:08→17:49)
[2021-04-19] MEDS: IBUPROFEN 800 MG TAB PO PRN ×2 (13:08→21:32)
[2021-04-19 14:00] VITALS: BP 102/53
[2021-04-19 17:34] VITALS: BP 126/73
[2021-04-19] MEDS: ACETAMINOPHEN 500 MG TAB PO PRN (17:49)
[2021-04-19 22:00] VITALS: BP 138/68
[2021-04-20] MEDS: ACETAMINOPHEN 500 MG TAB PO PRN ×2 (00:38→10:14)
[2021-04-20 02:00] VITALS: BP 119/66
[2021-04-20 06:00] VITALS: BP 120/70
[2021-04-20] MEDS: IBUPROFEN 800 MG TAB PO PRN ×2 (06:02→14:11)
[2021-04-20] MEDS ORDERED: IBUP-1022 PO (08:56)
[2021-04-20] MEDS ORDERED: DOK1CAP4 PO (08:56)
[2021-04-20] MEDS: PRENATAL VITAMINS CHEWABLE TABLET PO SCH (10:15)
--- NOTE | 2021-04-20 11:46 | DSES ---
DISCHARGE SUMMARY DATE OF ADMISSION: 04/18/2021 DATE OF DISCHARGE: 04/20/2021 This lady is a 31-year-old 3, now para 1, admitted for primary cesarian section because of small for gestational age/intrauterine growth restriction (IUGR), placenta previa, cervical fibroid and AGDM1 at 37 weeks of gestation. She had a primary cesarian section, delivered a live male , 4 pounds 12 ounces, 2160 grams, scores 9 and 9 at one and five minutes respectively. Cord was around the baby's body and legs. Arterial pH 7.31, base excess -4.6, venous pH 7.31, base excess -3.4. On her discharge, we discussed phlebitis, cystitis, mastitis, endometritis, cellulitis, diet, exercise, pain management, perineal, breast and wound care. Patient is presently , doing well and baby is under the lights for low bilirubin. She has no rashes, lesions or pruritus. No arthralgias or myalgias. No complaint of joint pain. No complaint of cough, wheeze, shortness of breath or dyspnea on exertion. No nausea, diarrhea or constipation. No urgency or frequency. The rest of the physical examination is unremarkable. Normocephalic, atraumatic. Neck full range of motion. Pupils equal and reactive to light. Distal pulses are symmetric. No evidence of deep venous thrombosis (DVT) pulmonary embolism (PE) or superficial phlebitis. Chest is clear to bilateral bases. No wheezes or rhonchi. No costovertebral angle (CVA) tenderness. Abdomen is soft. Four quadrant bowel sounds are noted. Incision is clean and dry. Her admitting hemoglobin 11.9, hematocrit 35.5, platelets 168. Discharge hemoglobin 10.3, hematocrit 30.9 and platelets are 157. Her vital signs on discharge: Blood pressure 120/70, respirations 18, pulse 95, temperature 97.9. In summary, we have a 37 week gestation, delivered a live male infant. Plans are for pickling operator medications at [place], two week incision check, six week check at [facility]. All questions were answered, 20 minute discussion. Patient was discharged improved.
--- NOTE | 2021-04-23 08:34 | IPN ---
PROGRESS NOTE DATE: 04/19/2021 SUBJECTIVE: This patient requested circumcision of her male infant. After discussing risks and benefits of circumcision, the medical, the nonmedical indications, the penile block and aftercare, expressed understanding of penile block aftercare and bleeding, signed the consent form. All questions were answered. Twenty minute discussion. We await clearance by the car greaser. cc: Christina NIÑO
--- NOTE | 2021-05-16 09:22 | RO ---
OPERATIVE NOTE DATE OF OPERATION: 04/18/2021 PREOPERATIVE DIAGNOSIS: Placenta previa, cervical myoma and growth restriction. POSTOPERATIVE DIAGNOSIS: Placenta previa, cervical myoma and growth restriction. OPERATION PROPOSED: Primary section. OPERATION PERFORMED: Primary section. SURGEON: Dr. Fco Hyman RATTLESNAKE FARMER: Dr. ANDRADE for extraction, retraction and visualization without which the procedure could not be completed. ANESTHESIA: Spinal plus local anesthetic for intraperitoneal procedures. ESTIMATED BLOOD LOSS: 400 mL DESCRIPTION OF PROCEDURE: After adequate timeout, prepped and draped in the supine position. Xavier catheter and bladder draining clear urine. Sequentials in place and appropriate antibiotics preoperatively. A Pfannenstiel incision was made two fingerbreadths above the symphysis pubis, passing through abdominal layers, securing hemostasis, opening the peritoneal cavity. On visualization, she has large cervical myoma deep in the cervical isthmic junction. She also has an anterior wall myoma. A Mobius was placed. A low transverse incision was made above the cervical myoma and AROM draining clear liquor. We delivered a livebirth male infant, 4 lb, 12 oz, 2160 gm, Apgars of 9 and 9 in 1 and 5 minutes respectively, cord around the body x1 and the leg x1. Arterial pH was 7.31, base excess minus 4.6. Venous pH 7.31, base excess minus 3.4. The placenta was manually removed, three vessels in the cord. Membranes and tissues intact, sweeping out the uterine contents. No evidence of clots, membranes or placenta. The uterus contracted well down under Pitocin. The lower segment was oversewn in the usual fashion in two layers, imbricating the second layer. Reperitonealization was performed. With instrument and pad count correct, the Mobius was removed. Both ovaries and tubes appeared to be normal. The abdomen was then closed with running stitch for the peritoneum, the same for the fascia, interrupted for subcu and Dexon to the skin. Marcaine 0.25% 10 mL to the incisional pain and a Medipore dressing was placed. The patient was sent to recovery in good condition. [facility]
== END 2021-04-20 15:15 | disposition home or self-care (01) | DRG 773 ==
LOC: M LDI 06:37 → MERGE 06:37 → M OBS 13:29 → UNDODISIN 04-20 13:55
PROVIDERS: ADMIT Obstetrics & Gynecology; ATTEND Obstetrics & Gynecology
PROC: 10D00Z1 Extraction of Products of Conception, Low, Open Approach (ICD-10-PCS; principal; 2021-04-18 09:30)
DX: O44.23 Partial placenta previa NOS or without hemorrhage, third trimester (principal); Z3A.37 37 weeks gestation of pregnancy; O36.5930 Maternal care for other known or suspected poor fetal growth, third trimester, not applicable or unspecified; Z37.0 Single live birth; O24.420 Gestational diabetes mellitus in childbirth, diet controlled; D25.9 Leiomyoma of uterus, unspecified; O34.13 Maternal care for benign tumor of corpus uteri, third trimester